=== PATIENT | male | born 1960 | race Caucasian/White ===

== ENCOUNTER 2018-10-13 11:07 | Emergency (ER) | payer SELFPAY ==
[~2018-10-13] VITALS: Ht 180.3 cm; Wt 104.3 kg
[2018-10-13 11:47] LABS: BASO % 1 % (0-3); EOS # 0.2 x10^3/uL (0.0-0.7); EOS % 4 % (0-3); HEMATOCRIT 45.2 % (39.0-53.0); HEMOGLOBIN 15.6 g/dL (13.0-17.5); LYMPH # 1.3 x10^3/uL (1.0-4.8); LYMPH % 25 % (24-48); MEAN CORPUSCULAR HEMOGLOBIN 30 pg (25-35); MEAN CORPUSCULAR HGB CONC 35 g/dL (31-37); MEAN CORPUSCULAR VOLUME 86 fL (79-100); MONO # 0.9 x10^3/uL (0.0-1.1); MONO % 18 % (0-9); NEUT # 2.8 x10^3uL (1.8-7.7); NEUT % 53 % (31-73); PLATELET COUNT 252 x10^3/uL (140-400); RED BLOOD COUNT 5.29 x10^6/uL (4.30-5.70); RED CELL DISTRIBUTION WIDTH 14.1 % (11.5-14.5); WHITE BLOOD COUNT 5.3 x10^3/uL (4.0-11.0)
[2018-10-13 11:56] LABS: CALCIUM 9.5 mg/dL (8.5-10.1); CREATININE 1.2 mg/dL (0.7-1.3); POTASSIUM 4.2 mmol/L (3.5-5.1)
[2018-10-13 12:04] LABS: ALBUMIN 4.1 g/dL (3.4-5.0); ALBUMIN/GLOBULIN RATIO 1.1 (1.0-1.7); TOTAL BILIRUBIN 0.7 mg/dL (0.2-1.0); TOTAL PROTEIN 7.9 g/dL (6.4-8.2)
--- NOTE | 2018-10-13 12:04 | RAD ---
Chest, PA and Lateral: Technique: PA and lateral views of the chest were obtained. History: Chest pain. Comparison: None. Findings: The heart and pulmonary vasculature appear within normal limits. The lungs are clear. The pleural margins are clear. Mild degenerative changes thoracic spine. Impression: No acute chest process is seen. Electronically signed by: Daniele Mistry MD (10/13/2018 12:00 PM) [id number]
[2018-10-13] MEDS: IOHEXOL 240 MG/ML 50ML VIAL. PO ONE (12:40)
[2018-10-13] MEDS: IOHEXOL 300 MG/ML 100ML VIAL. IV ONE (12:40)
--- NOTE | 2018-10-13 13:00 | RAD ---
Examination: CT of the abdomen pelvis with oral and IV contrast HISTORY: History of epigastric pain, diarrhea COMPARISON: None available TECHNIQUE: Axial CT images of the abdomen pelvis performed with oral and IV contrast. Coronal and sagittal reformats performed. Exposure: One or more of the following individualized dose reduction techniques were utilized for this examination: 1. Automated exposure control 2. Adjustment of the mA and/or kV according to patient size 3. Use of iterative reconstruction technique FINDINGS: Minimal bibasilar lung atelectasis. No evidence of free air identified in the abdomen. Small hiatal hernia is identified. The visualized liver, spleen, adrenals grossly appears unremarkable. The gallbladder is mildly distended. Stomach is mildly distended. The visualized pancreas grossly appears unremarkable the small bowel is nondilated. Feces and gas noted in the colon. The appendix is normal. The bilateral kidneys enhance symmetrically. Cystic structures identified in the bilateral kidneys with the largest measuring 3.4 cm. Moderate degenerative changes thoracal lumbar spine. IMPRESSION: 1. No acute intra-abdominal findings. 2. Small hiatal hernia. 2. Bilateral renal cysts. Electronically signed by: Daniele Mistry MD (10/13/2018 12:57 PM) [id number]
[2018-10-13] MEDS ORDERED: LIDO:MAALOX 1:1 20 ML SINGLE DOSE. ONE (13:59)
[2018-10-13] MEDS: LIDO:MAALOX 1:1 20 ML SINGLE DOSE. SWSW ONE (14:00)
[2018-10-13] MEDS ORDERED: CONTRAST GIVEN. MC PRN (14:00)
--- NOTE | 2018-10-13 14:11 | EKG ---
[facility] [address] [place] [address] Test Date: 2018-10-13 Test Time: 11:45:50 Pat Name: RENAE MORALES Department: Room: Gender: M Bunch Maker: : 1960 Requested By: RITA SALDIVAR Order Number: [id number] Reading MD: Mannie Sharma MD Measurements Intervals [place] Rate: 72 P: 0 IN: 156 QRS: 40 QRSD: 100 T: 39 QT: 388 QTc: 426 Interpretive Statements SINUS RHYTHM Electronically Signed On 10-14-2018 17:24:57 CDT by Mannie Sharma MD
[2018-10-13 14:45] LABS: BILIRUBIN,URINE NEGATIVE (NEG); CLARITY,URINE CLEAR; COLOR,URINE YELLOW; NITRITE,URINE NEGATIVE (NEG); PROTEIN,URINE NEGATIVE (NEG-TRACE)
[2018-10-13 14:46] VITALS: BP 159/91
[2018-10-13 14:55] LABS: BACTERIA,URINE 0 /HPF (0-FEW); SQUAMOUS EPITHELIAL CELL,UR FEW /LPF
[2018-10-13] MEDS ORDERED: FAMO20TA38 PO (15:20)
[2018-10-13] MEDS ORDERED: SULF1TAB24 PO (15:20)
--- NOTE | 2018-10-13 15:22 | PHYS DOC ---
Past Medical History Past Medical History: No Pertinent History Past Surgical History: Other Additional Past Surgical Histo: KNEE Alcohol Use: Occasionally Drug Use: None Adult General Chief Complaint Chief Complaint: ABDOMINAL PAIN HPI HPI Patient is a 57 year old male who presents with a 3 days hx of nausea and upper epigastric pain. He states that drinking water helped his symptoms and that he is starting to feel better. He still has some tenderness to his LUQ. He was having diarrhea which has now stopped. He has not taken OTC medications. he denies fever or chills. He denies blood or mucus in his stool. Review of Systems Review of Systems Constitutional: Denies fever or chills [] Eyes: Denies change in visual acuity, redness, or eye pain [] HENT: Denies nasal congestion or sore throat [] Respiratory: Denies cough or shortness of breath [] Cardiovascular: No additional information not addressed in HPI [] GI: See HPI : Denies dysuria or hematuria [] Musculoskeletal: Denies back pain or joint pain [] Integument: Denies rash or skin lesions [] Neurologic: Denies headache, focal weakness or sensory changes [] Endocrine: Denies polyuria or polydipsia [] All other systems were reviewed and found to be within normal limits, except as documented in this note. Current Medications Current Medications Current Medications Medications (Trade) Dose Ordered Sig/Paramjit Start Time Stop Time Status Last Admin Dose Admin Ceftriaxone Sodium (Rocephin) 1 gm 1X ONCE 10/13/18 15:15 10/13/18 15:16 DC 10/13/18 15:44 1 GM Info (CONTRAST GIVEN -- Rx MONITORING) 1 each PRN DAILY PRN 10/13/18 14:00 10/13/18 15:50 DC Iohexol (Omnipaque 240 Mg/ml) 30 ml 1X ONCE 10/13/18 12:15 10/13/18 12:16 DC 10/13/18 12:40 30 ML Iohexol (Omnipaque 300 Mg/ml) 75 ml 1X ONCE 10/13/18 12:15 10/13/18 12:16 DC 10/13/18 12:40 75 ML Multi-Ingredient Mouthwash/Gargle (Gi Cocktail) 20 ml STK-MED ONCE 10/13/18 13:59 10/13/18 14:00 DC Allergies Allergies Allergies Coded Allergies Type Severity Reaction Last Updated Verified No Known Drug Allergies 10/13/18 No Physical Exam Physical Exam Constitutional: Well developed, well nourished, no acute distress, non-toxic appearance. [] HENT: Normocephalic, atraumatic, bilateral external ears normal, oropharynx moist, no oral exudates, nose normal. [] Eyes: PERRLA, EOMI, conjunctiva normal, no discharge. [] Neck: Normal range of motion, no tenderness, supple, no stridor. [] Cardiovascular:Heart rate regular rhythm, no murmur [] Lungs & Thorax: Bilateral breath sounds clear to auscultation [] Abdomen: Bowel sounds normal, soft, mild tenderness to LUQ with palpation, no guarding, no masses, no pulsatile masses. [] Skin: Warm, dry, no erythema, no rash. [] Back: No tenderness, no CVA tenderness. [] Extremities: No tenderness, no cyanosis, no clubbing, ROM intact, no edema. [] Neurologic: Alert and oriented X 3, normal motor function, normal sensory function, no focal deficits noted. [] Psychologic: Affect normal, judgement normal, mood normal. [] Current Patient Data Vital Signs Vital Signs Date Time Temp Pulse Resp B/P (MAP) Pulse Ox O2 Delivery O2 Flow Rate FiO2 10/13/18 14:46 70 159/91 (113) 95 Room Air 10/13/18 11:17 97.3 20 97.3 Lab Values Laboratory Tests Test 10/13/18 11:25 10/13/18 14:35 White Blood Count 5.3 x10^3/uL (4.0-11.0) Red Blood Count 5.29 x10^6/uL (4.30-5.70) Hemoglobin 15.6 g/dL (13.0-17.5) Hematocrit 45.2 % (39.0-53.0) Mean Corpuscular Volume 86 fL (79-100) Mean Corpuscular Hemoglobin 30 pg (25-35) Mean Corpuscular Hemoglobin Concent 35 g/dL (31-37) Red Cell Distribution Width 14.1 % (11.5-14.5) Platelet Count 252 x10^3/uL (140-400) Neutrophils (%) (Auto) 53 % (31-73) Lymphocytes (%) (Auto) 25 % (24-48) Monocytes (%) (Auto) 18 % (0-9) H Eosinophils (%) (Auto) 4 % (0-3) H Basophils (%) (Auto) 1 % (0-3) Neutrophils # (Auto) 2.8 x10^3uL (1.8-7.7) Lymphocytes # (Auto) 1.3 x10^3/uL (1.0-4.8) Monocytes # (Auto) 0.9 x10^3/uL (0.0-1.1) Eosinophils # (Auto) 0.2 x10^3/uL (0.0-0.7) Basophils # (Auto) 0.0 x10^3/uL (0.0-0.2) Sodium Level 142 mmol/L (136-145) Potassium Level 4.2 mmol/L (3.5-5.1) Chloride Level 103 mmol/L (98-107) Carbon Dioxide Level 29 mmol/L (21-32) Anion Gap 10 (6-14) Blood Urea Nitrogen 12 mg/dL (8-26) Creatinine 1.2 mg/dL (0.7-1.3) Estimated GFR (Cockcroft-Gault) 62.0 BUN/Creatinine Ratio 10 (6-20) Glucose Level 105 mg/dL (70-99) H Calcium Level 9.5 mg/dL (8.5-10.1) Total Bilirubin 0.7 mg/dL (0.2-1.0) Aspartate Amino Transferase (AST) 77 U/L (15-37) H Alanine Aminotransferase (ALT) 128 U/L (16-63) H Alkaline Phosphatase 113 U/L (46-116) Troponin I Quantitative < 0.017 ng/mL (0.000-0.055) Total Protein 7.9 g/dL (6.4-8.2) Albumin 4.1 g/dL (3.4-5.0) Albumin/Globulin Ratio 1.1 (1.0-1.7) Amylase Level 70 U/L (25-115) Lipase 100 U/L (73-393) Urine Collection Type Unknown Urine Color Yellow Urine Clarity Clear Urine pH 6.0 Urine Specific [place] >=1.030 Urine Protein Negative mg/dL (NEG-TRACE) Urine Glucose (UA) Negative mg/dL (NEG) Urine Ketones (Stick) Negative mg/dL (NEG) Urine Blood Trace (NEG) Urine Nitrite Negative (NEG) Urine Bilirubin Negative (NEG) Urine Urobilinogen Dipstick 1.0 mg/dL (0.2 mg/dL) Urine Leukocyte Esterase Trace (NEG) Urine RBC 11-20 /HPF (0-2) Urine WBC 11-20 /HPF (0-4) Urine Squamous Epithelial Cells Few /LPF Urine Transitional Epithelial Cells Occ /LPF Urine Renal Epithelial Cells Occ /LPF Urine Bacteria 0 /HPF (0-FEW) Urine Mucus Slight /LPF Laboratory Tests 10/13/18 11:25 Laboratory Tests 10/13/18 11:25 Microbiology 10/13/18 Urine Culture - Final, Complete 10/13/18 Urine Culture Result 1 (JENIFFER) - Final, Complete EKG EKG [] Radiology/Procedures Radiology/Procedures []PATIENT: TREVOR MORALESCCOUNT: [id number]#: [id number] : 1960 LOCATION: ER AGE: 57 SEX: M EXAM STATUS: REG ER ORD. PHYSICIAN: RITA SALDIVAR APRN REASON: epigastric pain x 4 days PROCEDURE: CT ABD PELV W/ORAL&IV CONTRAST Examination: CT of the abdomen pelvis with oral and IV contrast HISTORY: History of epigastric pain, diarrhea COMPARISON: None available TECHNIQUE: Axial CT images of the abdomen pelvis performed with oral and IV contrast. Coronal and sagittal reformats performed. Exposure: One or more of the following individualized dose reduction techniques were utilized for this examination: 1. Automated exposure control 2. Adjustment of the mA and/or kV according to patient size 3. Use of iterative reconstruction technique FINDINGS: Minimal bibasilar lung atelectasis. No evidence of free air identified in the abdomen. Small hiatal hernia is identified. The visualized liver, spleen, adrenals grossly appears unremarkable. The gallbladder is mildly distended. Stomach is mildly distended. The visualized pancreas grossly appears unremarkable the small bowel is nondilated. Feces and gas noted in the colon. The appendix is normal. The bilateral kidneys enhance symmetrically. Cystic structures identified in the bilateral kidneys with the largest measuring 3.4 cm. Moderate degenerative changes thoracal lumbar spine. IMPRESSION: 1. No acute intra-abdominal findings. 2. Small hiatal hernia. 2. Bilateral renal cysts. Electronically signed by: Daniele Mistry MD (10/13/2018 12:57 PM) [id number] DICTATED and SIGNED BY: DANIELE MISTRY MD DATE: 10/13/18 1257 Course & Med Decision Making Course & Med Decision Making Pertinent Labs and Imaging studies reviewed. (See chart for details) []The patient is positive for a UTI. Dragon Disclaimer Dragon Disclaimer This electronic medical record was generated, in whole or in part, using a voice recognition dictation system. Departure Departure Impression: Primary Impression: UTI (urinary tract infection) Additional Impression: Abdominal pain Disposition: HOME, SELF-CARE Condition: STABLE Referrals: NO PCP (PCP) KEANU BURGESS MD Patient Instructions: Diet for Gastroesophageal Reflux Disease, Adult, Urinary Tract Infection Additional Instructions: Take medications as directed. Increase fluids and rest. Follow-up with your PCP or the GI specialist on your paperwork for further evaluation of this pain. Scripts Famotidine (PEPCID AC) 20 Mg Tablet 20 MG PO HS for GERD for 30 Days, #30 TAB Prov: RITA SALDIVAR APRN 10/13/18 Sulfamethoxazole/Trimethoprim (BACTRIM DS TABLET) 1 Each Tablet 1 TAB PO BID for UTI, #20 TAB Prov: RITA SALDIVAR APRN 10/13/18 Problem Qualifiers RITA SALDIVAR APRN Oct 13, 2018 15:22
[2018-10-13] MEDS: cefTRIAXone IV Push 1 GM VIAL. IVP ONE (15:44)
== END 2018-10-13 15:50 | disposition home or self-care (01) ==
LOC: ER 11:07
DX: N39.0 Urinary tract infection, site not specified (principal); R10.13 Epigastric pain; K44.9 Diaphragmatic hernia without obstruction or gangrene; N28.1 Cyst of kidney, acquired; R07.89 Other chest pain
CPT/HCPCS: 36415; 71046; 74177; 80053; 81001; 82150; 83690; 84484; 85025; 87086; 93005; 96374; 99284; J0696; Q9966; Q9967

== ENCOUNTER 2019-02-04 14:00 | Emergency (ER) | payer OTHER ==
[~2019-02-04] VITALS: Ht 180.3 cm; Wt 106.6 kg
[~2019-02-04 14:00] MED LIST: FAMO20TA38 PO; SULF1TAB24 PO
[2019-02-04 14:11] VITALS: BP 164/97
[2019-02-04 14:33] LABS: BILIRUBIN,URINE NEGATIVE (NEG); CLARITY,URINE CLEAR; COLOR,URINE AMBER; NITRITE,URINE POSITIVE (NEG); PH,URINE 5.5; PROTEIN,URINE 30 mg/dL (NEG-TRACE); UROBILINOGEN,URINE 0.2 mg/dL (0.2 mg/dL)
[2019-02-04 14:44] LABS: BACTERIA,URINE MANY /HPF (0-FEW); RBC,URINE 0 /HPF (0-2); WBC,URINE TNTC /HPF (0-4)
[2019-02-04] MEDS ORDERED: cefTRIAXone IM 1 GM VIAL IM ONE (15:45)
[2019-02-04] MEDS ORDERED: PHEN100T82 PO (16:14)
[2019-02-04] MEDS ORDERED: CEPH-264 PO (16:14)
--- NOTE | 2019-02-04 16:14 | PHYS DOC ---
Past Medical History Past Medical History: No Pertinent History Past Surgical History: Other Additional Past Surgical Histo: KNEE Alcohol Use: Occasionally Drug Use: None Adult General Chief Complaint Chief Complaint: URINARY FREQUENCY HPI HPI Patient is a 58 year old male who presents with complaining of urinary symptom. Patient states he has had urinary frequency and dysuria for the last or 2-3 days and thinks she has UTI. Patient states he had UTI about 2 months ago the same symptom. Patient denies fever and chills, nausea and vomiting, abdominal pain, hematuria, diabetes mellitus. Patient states he has had nocturia but have not been checked for prostate problem. Review of Systems Review of Systems Constitutional: Denies fever or chills [] Eyes: Denies change in visual acuity, redness, or eye pain [] HENT: Denies nasal congestion or sore throat [] Respiratory: Denies cough or shortness of breath [] Cardiovascular: No additional information not addressed in HPI [] GI: Denies abdominal pain, nausea, vomiting, bloody stools or diarrhea [] : Denies hematuria, reports dysuria and frequency [] Musculoskeletal: Denies back pain or joint pain [] Integument: Denies rash or skin lesions [] Neurologic: Denies headache, focal weakness or sensory changes [] Endocrine: Denies polyuria or polydipsia [] All other systems were reviewed and found to be within normal limits, except as documented in this note. Current Medications Current Medications Current Medications Medications (Trade) Dose Ordered Sig/Paramjit Start Time Stop Time Status Last Admin Dose Admin Ceftriaxone Sodium (Rocephin Im) 1 gm 1X ONCE 02/04/19 15:45 02/04/19 15:46 DC 02/04/19 15:48 1 GM Allergies Allergies Allergies Coded Allergies Type Severity Reaction Last Updated Verified No Known Drug Allergies 10/13/18 No Physical Exam Physical Exam Constitutional: Well developed, well nourished, no acute distress, non-toxic appearance. [] HENT: Normocephalic, atraumatic, oropharynx moist. Eyes: PERRLA, EOMI, conjunctiva normal, no discharge. [] Neck: Normal range of motion, no tenderness, supple, no stridor. [] Cardiovascular:Heart rate regular rhythm, no murmur [] Lungs & Thorax: Bilateral breath sounds clear to auscultation [] Abdomen: Bowel sounds normal, soft, no tenderness, no masses, no pulsatile masses. [] Skin: Warm, dry, no erythema, no rash. [] Back: No tenderness, no CVA tenderness. [] Extremities: No tenderness, no cyanosis, no clubbing, ROM intact, no edema. [] Neurologic: Alert and oriented X 3, normal motor function, normal sensory function, no focal deficits noted. [] Psychologic: Affect normal, judgement normal, mood normal. [] Current Patient Data Vital Signs Vital Signs Date Time Temp Pulse Resp B/P (MAP) Pulse Ox O2 Delivery O2 Flow Rate FiO2 02/04/19 14:11 97.5 107 16 164/97 (119) 96 Room Air 97.5 Lab Values Laboratory Tests Test 02/04/19 14:11 Urine Collection Type Void Urine Color Jossy Urine Clarity Clear Urine pH 5.5 Urine Specific [place] 1.020 Urine Protein 30 mg/dL (NEG-TRACE) Urine Glucose (UA) Negative mg/dL (NEG) Urine Ketones (Stick) Negative mg/dL (NEG) Urine Blood Small (NEG) Urine Nitrite Positive (NEG) Urine Bilirubin Negative (NEG) Urine Urobilinogen Dipstick 0.2 mg/dL (0.2 mg/dL) Urine Leukocyte Esterase Large (NEG) Urine RBC 0 /HPF (0-2) Urine WBC Tntc /HPF (0-4) Urine Bacteria Many /HPF (0-FEW) EKG EKG [] Radiology/Procedures Radiology/Procedures [] Course & Med Decision Making Course & Med Decision Making Pertinent Labs reviewed. (See chart for details) Evaluation of patient in ER showed 58-year-old male patient with UTI symptoms. Patient did not have CVA tenderness. Labs showed more than 40 WBC and urine. Patient treated with Rocephin IM in ER and prescription for Keflex and Pyridium was given. Patient was advised to follow-up with her urologist for possible BPH. Dragon Disclaimer Dragon Disclaimer This electronic medical record was generated, in whole or in part, using a voice recognition dictation system. Departure Departure Impression: Primary Impression: Urinary tract infection Disposition: HOME, SELF-CARE (at 1610) Condition: IMPROVED Referrals: NO PCP (PCP) KASSI IRVING MD Patient Instructions: Urinary Tract Infection Additional Instructions: Drink plenty of liquids Follow-up with your primary care physician in 3-5 days Return to ER if not getting better Follow-up with urology physician regarding enlarged prostate. Scripts Phenazopyridine Hcl (PYRIDIUM) 100 Mg Tablet 100 MG PO TID for dysuria, #10 TAB Prov: EMELY ALMARAZ MD 02/04/19 Cephalexin (KEFLEX) 500 Mg Capsule 2 CAP PO Q12HR, #40 CAP Prov: EMELY ALMARAZ MD 02/04/19 Problem Qualifiers Primary Impression: Urinary tract infection Urinary tract infection type: acute cystitis Hematuria presence: without hematuria Qualified Codes: N30.00 - Acute cystitis without hematuria EMELY ALMARAZ MD Feb 04, 2019 16:14
== END 2019-02-04 16:31 | disposition home or self-care (01) ==
LOC: ER 14:00
DX: N30.00 Acute cystitis without hematuria (principal)
CPT/HCPCS: 81001; 87086; 96372; 99284; J0696

== ENCOUNTER → 2020-09-26 | Outpatient (CLI) | payer OTHER ==
[~2020-09-26] MED LIST changes: +CEPH-264 PO; +PHEN100T82 PO
[2020-09-26 17:12] LABS: BASO # 0.1 x10^3/uL (0.0-0.2); BASO % 1 % (0-3); EOS # 0.2 x10^3/uL (0.0-0.7); EOS % 2 % (0-3); HEMATOCRIT 46.4 % (39.0-53.0); HEMOGLOBIN 16.1 g/dL (13.0-17.5); LYMPH # 1.8 x10^3/uL (1.0-4.8); LYMPH % 26 % (24-48); MEAN CORPUSCULAR HEMOGLOBIN 29 pg (25-35); MEAN CORPUSCULAR HGB CONC 35 g/dL (31-37); MEAN CORPUSCULAR VOLUME 83 fL (79-100); MONO # 1.1 x10^3/uL (0.0-1.1); MONO % 15 % (0-9); NEUT % 56 % (31-73); PLATELET COUNT 192 x10^3/uL (140-400); WHITE BLOOD COUNT 7.1 x10^3/uL (4.0-11.0)
== END ==
LOC: LAB 16:51
PROVIDERS: ATTEND Family Medicine
DX: Z13.220 Encounter for screening for lipoid disorders (principal); Z12.5 Encounter for screening for malignant neoplasm of prostate; I10 Essential (primary) hypertension
CPT/HCPCS: 36415; 84153; 85025; G0103